=== PATIENT | male | born 1955 | race African-American/Black ===

== ENCOUNTER 2016-11-06 06:19 | Observation (INO) | payer OTHER ==
[~2016-11-06] VITALS: Ht 180.3 cm; Wt 78.0 kg
[2016-11-06 06:23] VITALS: BP 124/74; PULSE 100; RESP 16; TEMP 97.6; O2SAT 99
--- NOTE | 2016-11-06 06:35 | PD ---
HPI Chief Complaint: Chest Pain Time Seen by Provider: 06:34 Travel History International Travel<30 days: No Contact w/Intl Traveler<30days: No Traveled to known affect area: No History of Present Illness HPI 60-year-old male came to the emergency room with history of chest pain that started about 3-4 days ago. Patient points to his substernal and subxiphoid area with the pain. No significant radiation of the pain. No low exacerbating or relieving factors identified. Patient has history of lupus. Has never had chest pain like this before. Never had a cardiac workup before. Rates the pain 4 out of 10. Says it's dull annoying ache. PFSH Past Medical History Narrative Medical List of his past medical, surgical, social and family history is from the nursing. Medical other: Yes (lupus) Past Surgical History Thoracic Surgery: Yes (FOR PNEUMOTHORAX) Social History Alcohol Use: No Tobacco Use: Yes (1 pack every 3 days) Substance Use: No Allergies-Medications (Allergen,Severity, Reaction): Coded Allergies: No Known Allergies (Unverified , 01/14/14) Comments No known drug allergies. Reported Meds & Prescriptions Reported Meds & Active Scripts Active Reported Methotrexate 2.5 Mg Tab 2.5 Mg PO Hydroxychloroquine (Hydroxychloroquine Sulfate) 200 Mg Tab 200 Mg PO BID Takw with food Folic Acid 400 Mcg Tab 400 Mcg PO DAILY Narrative Medication List of his home medications reviewed from the nursing note. Review of Systems Except as stated in HPI: all other systems reviewed are Neg Physical Exam Narrative GENERAL: Awake, alert, moderate distress SKIN: Focused skin assessment warm/dry. Scleroderma cranial facies HEAD: Atraumatic. Normocephalic. EYES: Pupils equal and round. No scleral icterus. No injection or drainage. ENT: No nasal bleeding or discharge. Mucous membranes pink and moist. NECK: Trachea midline. No JVD. CARDIOVASCULAR: Regular rate and rhythm. No murmur appreciated. RESPIRATORY: No accessory muscle use. Clear to auscultation. Breath sounds equal bilaterally. GASTROINTESTINAL: Abdomen soft, non-tender, nondistended. Hepatic and splenic margins not palpable. MUSCULOSKELETAL: No obvious deformities. No clubbing. No cyanosis. No edema. NEUROLOGICAL: Awake and alert. No obvious cranial nerve deficits. Motor grossly within normal limits. Normal speech. PSYCHIATRIC: Appropriate mood and affect; insight and judgment normal. Data Data Last Documented VS Vital Signs Date Time Temp Pulse Resp B/P Pulse Ox O2 Delivery O2 Flow Rate FiO2 11/06/16 06:49 99 Room Air 11/06/16 06:49 77 18 127/66 11/06/16 06:23 97.6 Orders Electrocardiogram (11/06/16 06:38) Basic Metabolic Panel (Bmp) (11/06/16 06:38) Ckmb (Isoenzyme) Profile (11/06/16 06:38) Complete Blood Count With Diff (11/06/16 06:38) Magnesium (Mg) (11/06/16 06:38) Prothrombin Time / Inr (Pt) (11/06/16 06:38) Act Partial Throm Time (Ptt) (11/06/16 06:38) Troponin I (11/06/16 06:38) Chest, Single Ap (11/06/16 06:38) Ecg Monitoring (11/06/16 06:38) Bilateral Bp Monitoring (11/06/16 06:38) Iv Access Insert/Monitor (11/06/16 06:38) Oximetry (11/06/16 06:38) Oxygen Administration (11/06/16 06:38) Aspirin Chew (Aspirin Chew) (11/06/16 06:45) Sodium Chloride 0.9% Flush (Ns Flush) (11/06/16 06:45) CKMB (11/06/16 06:50) CKMB% (11/06/16 06:50) Admit Order (Ed Use Only) (11/06/16 07:43) Activity Bed Rest With Brp (11/06/16 07:43) Vital Signs (Adult) Q4H (11/06/16 07:43) Cardiac Rhythm .As Directed (11/06/16 07:43) Notify Dr: Other .PRN (11/06/16 07:43) Notify . Parameters (11/06/16 07:43) Resp Oxygen Nasal Cannula (11/06/16 ) Ckmb (Isoenzyme) Profile (11/06/16 07:43) Ckmb (Isoenzyme) Profile (11/06/16 10:43) Troponin I (11/06/16 07:43) Troponin I (11/06/16 10:43) Electrocardiogram (11/06/16 10:43) ^ Obtain (11/06/16 07:43) Sodium Chloride 0.9% Flush (Ns Flush) (11/06/16 07:45) Sodium Chloride 0.9% Flush (Ns Flush) (11/06/16 09:00) Local [employer] / Telemetry GAIL.Q8H (11/06/16 07:43) Labs Laboratory Tests Test 11/06/16 06:50 White Blood Count 3.5 TH/MM3 Red Blood Count 4.52 MIL/MM3 Hemoglobin 13.7 GM/DL Hematocrit 41.2 % Mean Corpuscular Volume 91.0 FL Mean Corpuscular Hemoglobin 30.3 PG Mean Corpuscular Hemoglobin 33.2 % Concent Red Cell Distribution Width 13.2 % Platelet Count 106 TH/MM3 Mean Platelet Volume 9.2 FL Neutrophils (%) (Auto) 53.9 % Lymphocytes (%) (Auto) 33.6 % Monocytes (%) (Auto) 9.5 % Eosinophils (%) (Auto) 2.5 % Basophils (%) (Auto) 0.5 % Neutrophils # (Auto) 1.9 TH/MM3 Lymphocytes # (Auto) 1.2 TH/MM3 Monocytes # (Auto) 0.3 TH/MM3 Eosinophils # (Auto) 0.1 TH/MM3 Basophils # (Auto) 0.0 TH/MM3 CBC Comment DIFF FINAL Differential Comment Prothrombin Time 10.8 SEC Prothromb Time International 1.0 RATIO Ratio Activated Partial 25.8 SEC Thromboplast Time Sodium Level 136 MEQ/L Potassium Level 3.4 MEQ/L Chloride Level 104 MEQ/L Carbon Dioxide Level 24.8 MEQ/L Anion Gap 7 MEQ/L Blood Urea Nitrogen 20 MG/DL Creatinine 1.27 MG/DL Estimat Glomerular Filtration 70 ML/MIN Rate Random Glucose 107 MG/DL Calcium Level 9.1 MG/DL Magnesium Level 2.1 MG/DL Total Bilirubin 0.7 MG/DL Direct Bilirubin 0.2 MG/DL Indirect Bilirubin 0.5 MG/DL Aspartate Amino Transf 27 U/L (AST/SGOT) Alanine Aminotransferase 16 U/L (ALT/SGPT) Alkaline Phosphatase 67 U/L Total Creatine Kinase 277 U/L Creatine Kinase MB 2.6 NG/ML Troponin I LESS THAN 0.02 NG/ML Total Protein 7.5 GM/DL Albumin 3.8 GM/DL Lipase 120 U/L MDM Medical Decision Making Medical Screen Exam Complete: Yes Emergency Medical Condition: Yes Medical Record Reviewed: Yes Interpretation(s) Twelve-lead EKG was reviewed by me. Right bundle branch block. [place] deviation. Heart rate of 84 bpm. Differential Diagnosis ACS, non-STEMI, nonspecific chest Narrative Course 6:44 AM patient is a smoker. He has never had any cardiac workup. Would like to admit him and get a cardiac workup if all the test results come back to be within normal limit. Patient will be sent over to the oncoming ER physician. I 've given him 2 baby aspirin's to chew on. Procedures EKG Prior to Arrival: No Diagnosis Primary Impression: Chest pain Qualified Code: R07.9 - Chest pain, unspecified type Admitting Information Admitting Physician Requests: Observation Bob Garcia MD Nov 06, 2016 06:35
[2016-11-06] MEDS ORDERED: ASPIRIN 81 MG CHEW TAB PO ONE (06:45)
[2016-11-06] MEDS ORDERED: SODIUM CHLORIDE 0.9% FLUSH 10 ML FLUSH IVF PRN (06:45)
[2016-11-06 06:49] VITALS: BP 127/66; PULSE 77; RESP 18; O2SAT 99
[2016-11-06] MEDS ORDERED: FOLI400T PO ×2 (06:49→16:39)
[2016-11-06] MEDS ORDERED: METO25TA3 PO (06:49)
[2016-11-06 07:06] LABS: AUTOMATED NEUTROPHIL # 1.9 TH/MM3 (1.8-7.7); BASOPHIL % 0.5 % (0.0-2.0); EOSINOPHIL # 0.1 TH/MM3 (0-0.4); EOSINOPHIL % 2.5 % (0.0-4.0); HEMATOCRIT 41.2 % (39.0-51.0); HEMO FLAGS DIFF FINAL; LYMPH % 33.6 % (9.0-44.0); LYMPHOCYTE # 1.2 TH/MM3 (1.0-4.8); MEAN CORPUSCULAR HEMOGLOBIN 30.3 PG (27.0-34.0); MEAN CORPUSCULAR HGB CONC 33.2 % (32.0-36.0); MONO % 9.5 % (0.0-8.0); NEUT % 53.9 % (16.0-70.0); PLATELET COUNT 106 TH/MM3 (150-450); RED BLOOD COUNT 4.52 MIL/MM3 (4.50-5.90); RED CELL DISTRIBUTION WIDTH 13.2 % (11.6-17.2); WHITE BLOOD COUNT 3.5 TH/MM3 (4.0-11.0)
--- NOTE | 2016-11-06 07:11 | RADRPT ---
EXAM DATE/TIME: 11/06/2016 06:34 [facility] COMPARISON: No previous studies available for comparison. INDICATIONS : Shortness of breath. MEDICAL HISTORY : Hypertension. SURGICAL HISTORY : None. ENCOUNTER: Initial ACUITY: 1 day PAIN SCORE: 0/10 LOCATION: Bilateral chest FINDINGS: A single view of the chest demonstrates the lungs to be symmetrically aerated without evidence of mas s, infiltrate or effusion. The cardiomediastinal contours are unremarkable. Osseous structures are intact. CONCLUSION: Normal examination. Frankie Castrejon MD on November 06, 2016 at 7:09 Board Certified Radiologist. This report was verified electronically.
[2016-11-06 07:12] LABS: APTT (PATIENT) 25.8 SEC (24.3-30.1); PROTHROMBIN TIME - PATIENT 10.8 SEC (9.8-11.6)
[2016-11-06 07:25] LABS: ANION GAP 7 MEQ/L (5-15); BICARBONATE 24.8 MEQ/L (21.0-32.0); BLOOD UREA NITROGEN 20 MG/DL (7-18); CHLORIDE 104 MEQ/L (98-107); GLOMERULAR FILTRATION RATE 70 ML/MIN (>89); MAGNESIUM 2.1 MG/DL (1.5-2.5); POTASSIUM 3.4 MEQ/L (3.5-5.1); SODIUM (NA) 136 MEQ/L (136-145)
[2016-11-06 07:30] LABS: CREATINE KINASE 277 U/L (39-308)
[2016-11-06 07:42] LABS: CKMB 2.6 NG/ML (0.5-3.6)
--- NOTE | 2016-11-06 07:43 | PD ---
Physical Exam Narrative Received sign out from previous team to follow up labs and admit pt to chest pain center. 60yo M with PMH of lupus presents to the ED with c/o midsternal chest pain for 3 -4 days. Denies any sob. Chest pain has improved. Pt was given aspirin by previous team. Labs reviewed, troponin negative. CXR negative. 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 Pt agreed with plan. Will admit to chest pain center for serial EKG and cardiac enzymes. Data Data Last Documented VS Vital Signs Date Time Temp Pulse Resp B/P Pulse Ox O2 Delivery O2 Flow Rate FiO2 11/06/16 06:49 99 Room Air 11/06/16 06:49 77 18 127/66 11/06/16 06:23 97.6 Orders Electrocardiogram (11/06/16 06:38) Basic Metabolic Panel (Bmp) (11/06/16 06:38) Ckmb (Isoenzyme) Profile (11/06/16 06:38) Complete Blood Count With Diff (11/06/16 06:38) Magnesium (Mg) (11/06/16 06:38) Prothrombin Time / Inr (Pt) (11/06/16 06:38) Act Partial Throm Time (Ptt) (11/06/16 06:38) Troponin I (11/06/16 06:38) Chest, Single Ap (11/06/16 06:38) Ecg Monitoring (11/06/16 06:38) Bilateral Bp Monitoring (11/06/16 06:38) Iv Access Insert/Monitor (11/06/16 06:38) Oximetry (11/06/16 06:38) Oxygen Administration (11/06/16 06:38) Aspirin Chew (Aspirin Chew) (11/06/16 06:45) Sodium Chloride 0.9% Flush (Ns Flush) (11/06/16 06:45) CKMB (11/06/16 06:50) CKMB% (11/06/16 06:50) Labs Laboratory Tests Test 11/06/16 06:50 White Blood Count 3.5 TH/MM3 Red Blood Count 4.52 MIL/MM3 Hemoglobin 13.7 GM/DL Hematocrit 41.2 % Mean Corpuscular Volume 91.0 FL Mean Corpuscular Hemoglobin 30.3 PG Mean Corpuscular Hemoglobin 33.2 % Concent Red Cell Distribution Width 13.2 % Platelet Count 106 TH/MM3 Mean Platelet Volume 9.2 FL Neutrophils (%) (Auto) 53.9 % Lymphocytes (%) (Auto) 33.6 % Monocytes (%) (Auto) 9.5 % Eosinophils (%) (Auto) 2.5 % Basophils (%) (Auto) 0.5 % Neutrophils # (Auto) 1.9 TH/MM3 Lymphocytes # (Auto) 1.2 TH/MM3 Monocytes # (Auto) 0.3 TH/MM3 Eosinophils # (Auto) 0.1 TH/MM3 Basophils # (Auto) 0.0 TH/MM3 CBC Comment DIFF FINAL Differential Comment Prothrombin Time 10.8 SEC Prothromb Time International 1.0 RATIO Ratio Activated Partial 25.8 SEC Thromboplast Time Sodium Level 136 MEQ/L Potassium Level 3.4 MEQ/L Chloride Level 104 MEQ/L Carbon Dioxide Level 24.8 MEQ/L Anion Gap 7 MEQ/L Blood Urea Nitrogen 20 MG/DL Creatinine 1.27 MG/DL Estimat Glomerular Filtration 70 ML/MIN Rate Random Glucose 107 MG/DL Calcium Level 9.1 MG/DL Magnesium Level 2.1 MG/DL Total Creatine Kinase 277 U/L Troponin I LESS THAN 0.02 NG/ML MDM Supervised Visit with CALI: No Interpretation(s) EKG: NSR 84bpm. RBBB. Diagnosis Primary Impression: Chest pain Qualified Code: R07.9 - Chest pain, unspecified type Admitting Information Admitting Physician Requests: Deborah Dominguez DO Nov 06, 2016 07:43
[2016-11-06] MEDS ORDERED: SODIUM CHLORIDE 0.9% FLUSH 10 ML FLUSH IV FLUSH PRN (07:45)
[2016-11-06] MEDS ORDERED: SODIUM CHLORIDE 0.9% FLUSH 10 ML FLUSH IV FLUSH SCH (09:00)
[2016-11-06 09:14] LABS: CREATINE KINASE 241 U/L (39-308)
[2016-11-06] MEDS ORDERED: ALUMINUM/MAGNESIUM/SIMETH 30 ML CUP PO ONE (09:30)
[2016-11-06] MEDS ORDERED: ONDANSETRON HCL 4 MG/2 ML VIAL IV PRN (09:30)
[2016-11-06] MEDS ORDERED: POTASSIUM CHLORIDE 20 MEQ CONTROLLED RELEASE TAB PO ONE (09:30)
[2016-11-06] MEDS ORDERED: LIDOCAINE VISCOUS 2% SOLN 15 ML UDC PO ONE (09:30)
[2016-11-06] MEDS ORDERED: SODIUM CHLORIDE 0.9% FLUSH 5 ML FLUSH IVF PRN (09:30)
[2016-11-06] MEDS ORDERED: ACETAMINOPHEN/HYDROcodone 325 MG/7.5 MG TAB PO PRN (09:30)
[2016-11-06] MEDS ORDERED: ACETAMINOPHEN 500 MG CPLT PO PRN (09:30)
[2016-11-06] MEDS ORDERED: SODIUM CHLORID 0.9% 500 ML INJ 500 ML IV SCH (09:30)
[2016-11-06] MEDS ORDERED: ATROPINE/SCOPOLAM/HYOSCYAM/PB ELIXIR 10 ML CUP PO ONE (10:00)
[2016-11-06 10:01] LABS: INDIRECT BILIRUBIN 0.5 MG/DL (0.0-0.8); TOTAL BILIRUBIN ADULT 0.7 MG/DL (0.2-1.0)
[2016-11-06 10:34] VITALS: O2SAT 100
--- NOTE | 2016-11-06 10:41 | HHI.HP ---
[facility] Primary Care Physician Glenn Roach M.D. Chief Complaint Chest pain History of Present Illness This is a 60-year-old male that presents to the ED with a complaint of 2 days of intermittent central chest discomfort. He describes as an ache. The first time it occurred was when he was raking his yard. He states had a stop what he is doing it resolve within 5 or 10 minutes. Since since occurred while at rest or also when he has been walking. He's been little short of breath at times with the. When it first occurred he also had nausea with 3 episodes of emesis and has not reoccurred since. He is also diaphoretic his first episode. A nice history of coronary disease but states he does not recall ever being checked for it. States he has lupus and follow specialist for that. Patient also admits to tobacco abuse. Denies recent illness. Denies fevers or chills. Review of Systems General: Patient denies fevers, chills recent, and recent travel HEENT: Patient denies headache, sore throat, difficulty swallowing. Cardiovascular: Has the chest discomfort as mentioned above. Denies sensation of heart beating rapidly or irregularly. No syncope. Occasional diaphoresis. Respiratory: Occasional shortness of breath. Denies shortness of breath or inspirational chest discomfort. Denies coughing wheezing or hemoptysis. GI: He was nauseous with 3 episodes of emesis during the first episode of chest discomfort. Denies hematemesis. Patient denies diarrhea, abdominal pain, bloody stools. Musculoskeletal: Patient denies joint pain or edema. Denies calf pain or edema. Neurovascular: Patient denies numbness, tingling, weakness in extremities. Denies headache. Endocrine: Denies polyuria and polydipsia. Hematologic: Denies easy bruising. Skin: Denies rash or itching. Past Family Social History Allergies: Coded Allergies: No Known Allergies (Unverified , 01/14/14) Past Medical History Systemic lupus erythematosus. Follows Dr. Kingsley because of pancytopenia which was found related to autoimmune disorder as well as being on methotrexate. Denies hypertension, hyperlipidemia, diabetes, and denies known CAD. Past Surgical History Denies. He had a chest tube for pneumothorax. Reported Medications Reported Meds & Active Scripts Active Reported Folic Acid 400 Mcg Tab 400 Mcg PO DAILY Metoprolol Tartrate 25 Mg Tab 25 Mg PO DAILY Active Ordered Medications Current Medications Medications (Trade) Dose Ordered Sig/Cedric Route Start Time Stop Time Status Last Admin (NS Flush) 2 ml UNSCH PRN IVF 11/06/16 06:45 (NS Flush) 2 ml UNSCH PRN IV FLUSH 11/06/16 07:45 Sodium Chloride 2 ml 2 ml BID IV FLUSH 11/06/16 09:00 (NS 500 ml Inj) 500 ml @ 125 mls/hr NOW IV 11/06/16 09:30 11/06/16 13:29 (Tylenol) 500 mg Q4H PRN PO 11/06/16 09:30 ([place] 7.5-325 Mg) 1 tab Q4H PRN PO 11/06/16 09:30 (Zofran Inj) 4 mg Q6H PRN IV 11/06/16 09:30 (Aspirin) 325 mg DAILY PO 11/07/16 09:00 Family History Denies family history of CAD. Social History Patient smokes one third pack of cigarettes daily for 10 years prior that he smoked one half pack of service day for 2 years. He did not smoke prior that. Occasional marijuana. Denies alcohol. Physical Exam Vital Signs Vital Signs Date Time Temp Pulse Resp B/P Pulse Ox O2 Delivery O2 Flow Rate FiO2 11/06/16 06:49 99 Room Air 11/06/16 06:49 77 18 127/66 99 Room Air 11/06/16 06:23 97.6 100 16 124/74 99 Room Air Physical Exam GENERAL: This is a well-nourished, well-developed patient, in no apparent distress. Patient speaks in clear complete sentences. Patient is pleasant. HEENT: Head is atraumatic and normocephalic. Neck is supple without lymphadenopathy and trachea is midline. No JVD or carotid bruits. CARDIOVASCULAR: Regular rate and rhythm without murmurs, gallops, or rubs. RESPIRATORY: Clear to auscultation. Breath sounds equal bilaterally. No wheezes , rales, or rhonchi. Chest wall is tender just left of the sternum which is similar to the discomfort he has been having. No use of accessory muscles. GASTROINTESTINAL: Abdomen is nontender, nondistended. Abdomen soft. No obvious pulsatile mass or bruit. No CVA tenderness. Strong femoral pulses bilaterally. Normal bowel sounds in all quadrants. MUSCULOSKELETAL: Patient is moving upper and lower extremities freely. No calf tenderness or edema, no Homans sign. Strong pulses in upper and lower extremities. NEUROLOGICAL: Patient is alert and oriented. Cranial nerves 2-12 are grossly intact. No focal deficits and speech is clear. SKIN: No rash and turgor is normal. Laboratory Laboratory Tests Test 11/06/16 11/06/16 06:50 08:30 White Blood Count 3.5 Red Blood Count 4.52 Hemoglobin 13.7 Hematocrit 41.2 Mean Corpuscular Volume 91.0 Mean Corpuscular Hemoglobin 30.3 Mean Corpuscular Hemoglobin 33.2 Concent Red Cell Distribution Width 13.2 Platelet Count 106 Mean Platelet Volume 9.2 Neutrophils (%) (Auto) 53.9 Lymphocytes (%) (Auto) 33.6 Monocytes (%) (Auto) 9.5 Eosinophils (%) (Auto) 2.5 Basophils (%) (Auto) 0.5 Neutrophils # (Auto) 1.9 Lymphocytes # (Auto) 1.2 Monocytes # (Auto) 0.3 Eosinophils # (Auto) 0.1 Basophils # (Auto) 0.0 CBC Comment DIFF FINAL Differential Comment Prothrombin Time 10.8 Prothromb Time International 1.0 Ratio Activated Partial 25.8 Thromboplast Time Sodium Level 136 Potassium Level 3.4 Chloride Level 104 Carbon Dioxide Level 24.8 Anion Gap 7 Blood Urea Nitrogen 20 Creatinine 1.27 Estimat Glomerular Filtration 70 Rate Random Glucose 107 Calcium Level 9.1 Magnesium Level 2.1 Total Bilirubin 0.7 Direct Bilirubin 0.2 Indirect Bilirubin 0.5 Aspartate Amino Transf 27 (AST/SGOT) Alanine Aminotransferase 16 (ALT/SGPT) Alkaline Phosphatase 67 Total Creatine Kinase 277 241 Creatine Kinase MB 2.6 Troponin I LESS THAN 0.02 LESS THAN 0.02 Total Protein 7.5 Albumin 3.8 Lipase 120 Result Diagram: 11/06/16 0650 11/06/16 0650 Imaging Last 24 hours Impressions Chest X-Ray 11/06/16 0638 Signed Impressions: Service Date/Time: Sunday, November 06, 2016 06:34 - CONCLUSION: Normal examination. Frankie Castrejon MD Course Initial EKG is sinus rhythm rate of 84 with right bundle branch block. No significant ST segment depressions or elevations. Assessment and Plan Assessment and Plan * Chest pain: Patient has had first 2 sets of cardiac enzymes. He'll be seen by Dr. Prasad cardiology in the chest pain center. He will undergo a Lexiscan and will be discharged if the stress test was nonischemic. * Lupus: Continue his medications and follow-up with his physician. * Hypokalemia: Patient was given potassium supplementation. * History of pancytopenia: Patient is to continue follow-up with Dr. Kingsley. * Tobacco abuse: Patient has been counseled on the importance of smoking cessation. Patient is stable at this time. He is agreeable to this plan. Ruy Trent Nov 06, 2016 10:41
--- NOTE | 2016-11-06 11:12 | PD.CARD.PN ---
Subjective Subjective Remarks CARDIOLOGY PROGRESS NOTE Pt seen and examined then discussed with PA Essential comments S: History given me slightly different (pt. not consistent) that he was working in yard afternoon in the heat when he felt light headed and weak. He then fell to the ground and may have lost consciousness. He recovered and the next day he began having some chest pain. This he describes as beginning in the zyphoid area radiating down his abdomen to the pubis. This pain lasted about 10 minutes. No associated sx. However, he has now had several recurring episodes which may have been precipitated by walking. O: Arcus Edentulous Chest with dec. BS but no RWR CV without GRM Thus far has RO A: Atypical CP SLE Pancytopenia Hyperlipidemia DM P: RO by protocol and if neg obtain Nuc Stress If neg will disch to FU with universal grinder operator and PCP Objective Vital Signs / I&O Vital Signs Date Time Temp Pulse Resp B/P Pulse Ox O2 Delivery O2 Flow Rate FiO2 11/06/16 06:49 99 Room Air 11/06/16 06:49 77 18 127/66 99 Room Air 11/06/16 06:23 97.6 100 16 124/74 99 Room Air Laboratory Laboratory Tests Test 11/06/16 11/06/16 06:50 08:30 White Blood Count 3.5 TH/MM3 Red Blood Count 4.52 MIL/MM3 Hemoglobin 13.7 GM/DL Hematocrit 41.2 % Mean Corpuscular Volume 91.0 FL Mean Corpuscular Hemoglobin 30.3 PG Mean Corpuscular Hemoglobin 33.2 % Concent Red Cell Distribution Width 13.2 % Platelet Count 106 TH/MM3 Mean Platelet Volume 9.2 FL Neutrophils (%) (Auto) 53.9 % Lymphocytes (%) (Auto) 33.6 % Monocytes (%) (Auto) 9.5 % Eosinophils (%) (Auto) 2.5 % Basophils (%) (Auto) 0.5 % Neutrophils # (Auto) 1.9 TH/MM3 Lymphocytes # (Auto) 1.2 TH/MM3 Monocytes # (Auto) 0.3 TH/MM3 Eosinophils # (Auto) 0.1 TH/MM3 Basophils # (Auto) 0.0 TH/MM3 CBC Comment DIFF FINAL Differential Comment Prothrombin Time 10.8 SEC Prothromb Time International 1.0 RATIO Ratio Activated Partial 25.8 SEC Thromboplast Time Sodium Level 136 MEQ/L Potassium Level 3.4 MEQ/L Chloride Level 104 MEQ/L Carbon Dioxide Level 24.8 MEQ/L Anion Gap 7 MEQ/L Blood Urea Nitrogen 20 MG/DL Creatinine 1.27 MG/DL Estimat Glomerular Filtration 70 ML/MIN Rate Random Glucose 107 MG/DL Calcium Level 9.1 MG/DL Magnesium Level 2.1 MG/DL Total Bilirubin 0.7 MG/DL Direct Bilirubin 0.2 MG/DL Indirect Bilirubin 0.5 MG/DL Aspartate Amino Transf 27 U/L (AST/SGOT) Alanine Aminotransferase 16 U/L (ALT/SGPT) Alkaline Phosphatase 67 U/L Total Creatine Kinase 277 U/L 241 U/L Creatine Kinase MB 2.6 NG/ML Troponin I LESS THAN 0.02 LESS THAN 0.02 NG/ML NG/ML Total Protein 7.5 GM/DL Albumin 3.8 GM/DL Lipase 120 U/L Jude Prasad MD Nov 06, 2016 11:12
[2016-11-06 11:46] LABS: CREATINE KINASE 224 U/L (39-308)
[2016-11-06 11:58] LABS: CKMB 2.1 NG/ML (0.5-3.6)
--- NOTE | 2016-11-06 12:06 | EKG ---
Date Performed: 11/06/2016 Time Performed: 06:31:21 PTAGE: 60 years EKG: Sinus rhythm INDETERMINATE AXIS RIGHT BUNDLE BRANCH BLOCK LEFT ANTERIOR FASCICULAR BLOCK ABNORMAL ECG NO PREVIOUS TRACING DOCTOR: Jude Prasad Interpretating Date/Time 11/06/2016 12:05:29
[2016-11-06 12:10] VITALS: BP 103/58; PULSE 59; RESP 18; TEMP 97.8; O2SAT 99
--- NOTE | 2016-11-06 12:13 | EKG ---
Date Performed: 11/06/2016 Time Performed: 09:31:43 PTAGE: 60 years EKG: SINUS BRADYCARDIA RIGHT BUNDLE BRANCH BLOCK LEFT ANTERIOR FASCICULAR BLOCK ABNORMAL ECG PREVIOUS TRACING : 11/06/2016 06.31 DOCTOR: Jude Prasad Interpretating Date/Time 11/07/2016 07:15:08
[2016-11-06] MEDS ORDERED: REGADENOSON INJ 0.4 MG/5 ML SYR ONE (14:26)
[2016-11-06 15:53] VITALS: BP 127/58; PULSE 56; RESP 18; TEMP 97.6; O2SAT 100
--- NOTE | 2016-11-06 16:12 | RADRPT ---
EXAM DATE/TIME: 11/06/2016 14:03 [facility] COMPARISON: No previous studies available for comparison. INDICATIONS : Mid chest pain for two days. Angina. Right bundle branch block. DOSE: 25.7 mCi Tc99m Myoview at stress. 8.8 mCi Tc99m Myoview at rest. 0.4 mg Lexiscan STRESS SYMPTOMS: Shortness of breath. EJECTION FRACTION: 68% MEDICAL HISTORY : Lupus. SURGICAL HISTORY : None. ENCOUNTER: Initial ACUITY: 2 days PAIN SCALE: 4/10 LOCATION: Midsternal chest TECHNIQUE: The patient underwent pharmacologic stress with infusion of prescribed dose. Continuous ECG tracing was monitored during stress. Gated SPECT imaging was performed after stress and conventional SPECT i maging was performed at rest. The examination was performed on a SPECT/CT scanner, both attenuation and non-corrected datasets were reviewed. FINDINGS: DISTRIBUTION: The maximum perfused segment at stress is in the anteroseptal wall. PERFUSION STUDY: The pattern of perfusion at stress shows diminished, there is perfusion to the apex with no reversibi lity. GATED STUDY: There is intact wall motion and thickening without hypokinetic or dyskinetic segments. CONCLUSION: 1. Apical thinning versus old apical infarct. 2. No scintigraphic findings of ischemia. 3. Excellent wall motion throughout with an estimated ejection fraction of 68%. RISK CATEGORY: Low (<1% Annual Mortality Rate) Arnie Hernandez MD on November 06, 2016 at 16:09 Board Certified Radiologist. This report was verified electronically.
--- NOTE | 2016-11-06 16:37 | HHI.DCPOC ---
Discharge Care Plan Diagnosis: (1) Chest pain (2) Tobacco abuse Goals to Promote Your Health * To prevent worsening of your condition and complications * To maintain your health at the optimal level Directions to Meet Your Goals Take your medications as prescribed Follow your dietary instruction Follow activity as directed Keep your appointments as scheduled Take your immunizations and boosters as scheduled If your symptoms worsen call your PCP, if no PCP go to Urgent Care Center or Emergency Room Smoking is Dangerous to Your Health. Avoid second hand smoke Call the 24-hour hour crisis hotline for domestic abuse at Ruy Trent Nov 06, 2016 16:37
[2016-11-06] MEDS ORDERED: HYDR200T3 PO (16:39)
[2016-11-06] MEDS ORDERED: METH2.5T PO (16:39)
[2016-11-06 16:40] VITALS: PULSE 55
[2016-11-06] MEDS ORDERED: SODIUM CHLORIDE 0.9% FLUSH 5 ML FLUSH IVF SCH (21:00)
--- NOTE | 2016-11-07 08:01 | EKG ---
Date Performed: 11/06/2016 Time Performed: 10:28:40 PTAGE: 60 years EKG: SINUS BRADYCARDIA WITH SHORT CO INTERVAL RIGHT BUNDLE BRANCH BLOCK LEFT ANTERIOR FASCICULAR BLOCK ABNORMAL ECG PREVIOUS TRACING : 11/06/2016 09.31 Since previous tracing, no significant change noted DOCTOR: Maycol Valdes Interpretating Date/Time 11/07/2016 08:01:00
--- NOTE | 2016-11-07 08:02 | TR ---
Date Performed: 11/06/2016 Time Performed: 14:42:11 DOCTOR: Maycol Valdes DRUG LIST: CLINICAL HISTORY: ANGINA REASON FOR TEST: Angina REASON FOR ENDING: OBSERVATION: CONCLUSION: Lexiscan stress test was performed under standard four minute protocol. Radionucl[place] e was injected one minute prior to ending the test. No electrocardiographic abormalities were present to suggest ischemia. Nuclear imaging and interpretation are pending. COMMENTS:
[2016-11-07] MEDS ORDERED: ASPIRIN 325 MG TAB PO SCH (09:00)
== END 2016-11-06 17:17 | disposition home or self-care (01) ==
LOC: NEPE 06:19 → NEDA 07:44 → NEPGCP 10:49
PROVIDERS: ADMIT Internal Medicine Interventional Cardiology; ATTEND Internal Medicine Interventional Cardiology
DX: R07.89 Other chest pain (principal); X30.XXXA Exposure to excessive natural heat, initial encounter; E87.6 Hypokalemia; R06.02 Shortness of breath; R11.2 Nausea with vomiting, unspecified; I45.10 Unspecified right bundle-branch block; R07.2 Precordial pain; I44.4 Left anterior fascicular block; R94.31 Abnormal electrocardiogram [ECG] [EKG]; R00.1 Bradycardia, unspecified; R42 Dizziness and giddiness; R61 Generalized hyperhidrosis; M32.9 Systemic lupus erythematosus, unspecified; D61.818 Other pancytopenia; Z79.899 Other long term (current) drug therapy; I10 Essential (primary) hypertension; I20.9 Angina pectoris, unspecified; E78.5 Hyperlipidemia, unspecified; E11.9 Type 2 diabetes mellitus without complications; F12.90 Cannabis use, unspecified, uncomplicated; F17.210 Nicotine dependence, cigarettes, uncomplicated; W19.XXXA Unspecified fall, initial encounter
CPT/HCPCS: 71010; 78452; 80048; 80076; 82550; 82552; 83690; 83735; 84484; 85025; 85610; 85730; 93005; 93017; 99285; A9502; G0378; J2785